=== PATIENT | female | born 1940 | race Caucasian/White ===

== ENCOUNTER → 2016-07-02 | Outpatient (CLI) | payer MEDICARE ==
[~2016-07-02] MED LIST: ASPIRIN 32325 MG/TAB PO; ASPIRIN E.C. 8181 MG PO; BUFFERED ASPIR325 M1 PO; COZAAR100 MG PO; CREON 60000 U-11 ECC PO; DESYREL 50MG50 MG PO; FISH OIL1 IU PO; FOLIC ACID PO; FOLIC ACID800 MCG PO; GLUCOPHAGE500 MG/TAB PO; LIPITOR20 MG PO; LISINOPRIL PO; MASON NATURAL1000 MG PO; MULTIPLE VITAMI1 TAB PO; NORCO 325 MG-51 TAB PO; NORVASC 5MG5 MG/TAB PO; OMEGA 31000 MG PO; PEPCID 20MG TAB20 MG PO; PREVACID 30MG30 M1 PO; PREVACID 30MG30 MG PO; THIAMINE HCL100 MG PO; TOPROL XL 25MG25 MG PO; TOPROL XL 50MG50 MG PO; TOPROL XL50 MG PO; VITAMIN D 1001000 IU PO; ZOFRAN ODT4 MG PO
== END ==
LOC: SUN.DIA 08:14
DX: E11.65 Type 2 diabetes mellitus with hyperglycemia (principal); Z79.84 Long term (current) use of oral hypoglycemic drugs; Z71.3 Dietary counseling and surveillance; Z68.29 Body mass index [BMI] 29.0-29.9, adult; I10 Essential (primary) hypertension; F17.210 Nicotine dependence, cigarettes, uncomplicated
CPT/HCPCS: G0108

== ENCOUNTER → 2016-07-14 | Outpatient (CLI) | payer MEDICARE | LOC: SUN.DIA 11:19 | DX: E11.65 Type 2 diabetes mellitus with hyperglycemia (principal); Z79.4 Long term (current) use of insulin; Z68.28 Body mass index [BMI] 28.0-28.9, adult; Z71.3 Dietary counseling and surveillance; I10 Essential (primary) hypertension | CPT/HCPCS: G0108 ==

== ENCOUNTER → 2016-09-15 | Outpatient (CLI) | payer MEDICARE | LOC: SUN.DIA 12:53 | DX: E11.65 Type 2 diabetes mellitus with hyperglycemia (principal); Z68.28 Body mass index [BMI] 28.0-28.9, adult; Z71.3 Dietary counseling and surveillance; I10 Essential (primary) hypertension; F17.210 Nicotine dependence, cigarettes, uncomplicated ==

== ENCOUNTER → 2016-10-06 | Outpatient (CLI) | payer MEDICARE | LOC: SUN.DIA 11:47 | DX: E11.65 Type 2 diabetes mellitus with hyperglycemia (principal); Z68.28 Body mass index [BMI] 28.0-28.9, adult; Z71.3 Dietary counseling and surveillance; I10 Essential (primary) hypertension ==

== ENCOUNTER → 2018-04-21 | Outpatient (CLI) | payer MEDICARE | LOC: COL.RAD 04-20 16:05 | DX: R68.81 Early satiety (principal) | CPT/HCPCS: A9541 ==

== ENCOUNTER 2018-08-30 11:05 | Inpatient (IN) | payer MEDICARE ==
[~2018-08-30] VITALS: Ht 162.6 cm; Wt 61.0 kg
[2018-08-30 12:19] LABS: BASO % 0.2 % (0.0-2.0); EOS # 0.1 (0.0-0.7); EOS % 0.9 % (0-4.0); GRAN # 11.8 (1.4-6.5); GRAN % 84.3 % (42.2-75.2); LYMPH # 0.9 (1.2-3.4); LYMPH % 6.7 % (20.0-51.0); MEAN CELL VOLUME 83 fl (80.0-100.0); MEAN CORPUSCULAR HEMOGLOBIN 29 pg (27.0-31.0); MEAN CORPUSCULAR HGB CONC 35 g/dl (33.0-37.0); MEAN PLATELET VOLUME 12.1 fl (7.4-10.4); MONO % 6.8 % (1.7-9.3); PLATELET COUNT 356 K/mm3 (130-400); RED BLOOD COUNT 3.46 M/mm3 (4.10-5.30); REDCELL DISTRIBUTION WIDTH-CV 16.9 % (11.5-14.5)
[2018-08-30 12:20] LABS: HEMATOCRIT 28.6 % (37.0-47.0)
[2018-08-30 12:28] LABS: ALANINE AMINOTRANSFERASE 320 U/L (9-52); ALBUMIN 3.3 gm/dL (3.5-5.0); ANION GAP 14 mmol/L (7-16); AST,SGOT 631 U/L (15-37); BILIRUBIN,TOTAL 21.6 mg/dL (0.0-1.0); BLOOD UREA NITROGEN 17 mg/dL (7-17); CALCIUM 7.5 mg/dL (8.4-10.2); CARBON DIOXIDE 18 mmol/L (22-30); CHLORIDE 99 mmol/L (98-107); CREATININE, serum 0.48 (0.52-1.25); GLUCOSE 83 mg/dL (74-106); LIPASE 137 U/L (23-300); POTASSIUM 2.5 mmol/L (3.4-5.0); SODIUM 131 mmol/L (137-145); TOTAL PROTEIN 7.9 gm/dL (6.4-8.2)
[2018-08-30 12:29] LABS: ACETAMINOPHEN < 10 ug/mL (10-30); ALCOHOL(ethanol),MEDICAL < 10 mg/dL; SALICYLATE < 1.0 mg/dL
[2018-08-30 12:33] LABS: ALKALINE PHOSPHATASE 2331 U/L (50-136)
[2018-08-30] MEDS ORDERED: NEXIUM 20MG20 MG (14:14)
[2018-08-30] MEDS ORDERED: GLUCOTROL10 MG (14:14)
--- NOTE | 2018-08-30 16:15 | NUR ---
Arrived to the room at this time. Dr. Leyva here for assessment.
[2018-08-30 17:24] VITALS: BP 117/73; PULSE 82; TEMP 98.4
[2018-08-30 19:07] VITALS: BP 124/59; PULSE 85; TEMP 97.8
--- NOTE | 2018-08-30 19:23 | NUR ---
No change throughout the afternoon. Education provided to call for assistance as needed. Report given to NIKA Soto to resume care.
--- NOTE | 2018-08-30 19:46 | NUR ---
Patient resting in bed, helped to restroom and returned to bed. Assessment completed- lungs clear, abdominal sounds active, pulses +3, cap refill <3 seconds, denies pain, jaundiced skin and eyes. Discussed NPO status at midnight. ENcouraging pt to drink juice with K+ replacment.
[2018-08-31] VITALS (10 sets, daily range): BP systolic 98–120; BP diastolic 40–60; PULSE 58–94; TEMP 97.5–99
[2018-08-31 03:49] LABS: BASO % 0.3 % (0.0-2.0); EOS # 0.2 (0.0-0.7); EOS % 1.5 % (0-4.0); GRAN # 8.8 (1.4-6.5); GRAN % 77.9 % (42.2-75.2); HEMATOCRIT 27.8 % (37.0-47.0); HEMOGLOBIN 9.6 g/dl (12.5-16.0); LYMPH # 1.2 (1.2-3.4); LYMPH % 10.8 % (20.0-51.0); MEAN CELL VOLUME 83 fl (80.0-100.0); MEAN CORPUSCULAR HEMOGLOBIN 29 pg (27.0-31.0); MEAN CORPUSCULAR HGB CONC 35 g/dl (33.0-37.0); MONO # 0.9 (0.1-0.6); MONO % 8.3 % (1.7-9.3); PLATELET COUNT 282 K/mm3 (130-400); RED BLOOD COUNT 3.36 M/mm3 (4.10-5.30); REDCELL DISTRIBUTION WIDTH-CV 16.9 % (11.5-14.5)
[2018-08-31 04:01] LABS: BILIRUBIN,TOTAL 19.2 mg/dL (0.0-1.0); CALCIUM 7.1 mg/dL (8.4-10.2); CREATININE, serum 0.42 (0.52-1.25); POTASSIUM 4.2 mmol/L (3.4-5.0)
--- NOTE | 2018-08-31 05:04 | NUR ---
Pt slept on/off last night. VSS, afebrile, no reports of pain. Up several times to use restroom, SBA. NPO for ERCP this morning.
--- NOTE | 2018-08-31 07:12 | NUR ---
Report given to NIKA Suh.
--- NOTE | 2018-08-31 08:17 | NUR ---
Pt alert and oriented and NPO for ERCP procedure today. Pt consent obtained. Pt IV patent no redness or infiltration. Pt denies pain or SOB. Pt remains jaundice. Pt has call light in reach.
--- NOTE | 2018-08-31 12:37 | NUR ---
Pt taken down by Lev for ERCP procedure. Pt transferred over to NS for procedure per orders.
--- NOTE | 2018-08-31 14:34 | NUR ---
DMITRY and SW student met with the patient and patient's , Kodak, to discuss discharge plan. The patient lives in [place] with her . She reports independence with ADLs and does not use any DME. The patient's PCP is Dr. Lacey Moise and she receives her medications at [facility]. She reporst no difficulties obtaining her meds. The patient does not have advanced directives in EMR, but she states that she does have them completed and that they are at home. She states her is her DPOA-HC. The patient and patient's informed DMITRY that Dr. Yi gave the patient the option of transferring to [facility]. The patient and patient's report that they made the decision that they would like to go to [facility]. DMITRY informed the patient's nurse. No additional needs at this time.
[2018-08-31] MEDS ORDERED: NICODERM C21 MG/PATC TD (16:31)
[2018-08-31] MEDS ORDERED: NOVLOG SQ (16:34)
[2018-08-31] MEDS ORDERED: ENULOSE10 GM/15 M PO (16:34)
--- NOTE | 2018-08-31 18:00 | NUR ---
Pt alert and oriented. Pt accepted to [facility] and transfer via [facility]. Pt given 40ml of 50ml of Mg per orders. Pt transferred with all belongings and IV in place and free of complications. Transfer paperwork signed and sent with EMS.
--- NOTE | 2018-08-31 19:35 | NUR ---
Pt report given to Erin at [facility] and advised pt on her way as requeste.
== END 2018-08-31 18:50 | disposition short-term general hospital (02) | DRG 374 ==
LOC: COL.ER 11:05 → MEDICAL 13:32
PROVIDERS: Emergency Medicine; Internal Medicine Gastroenterology; ADMIT Family Medicine
PROC: 0FJB8ZZ Inspection of Hepatobiliary Duct, Via Natural or Artificial Opening Endoscopic (ICD-10-PCS; principal; 2018-08-31 12:15)
DX: C17.0 Malignant neoplasm of duodenum (principal); K83.1 Obstruction of bile duct; E87.1 Hypo-osmolality and hyponatremia; K86.0 Alcohol-induced chronic pancreatitis; K86.9 Disease of pancreas, unspecified; E87.6 Hypokalemia; I10 Essential (primary) hypertension; I25.10 Atherosclerotic heart disease of native coronary artery without angina pectoris; E11.9 Type 2 diabetes mellitus without complications; Z95.5 Presence of coronary angioplasty implant and graft; F17.210 Nicotine dependence, cigarettes, uncomplicated; D64.9 Anemia, unspecified; E83.42 Hypomagnesemia; E78.5 Hyperlipidemia, unspecified; J44.9 Chronic obstructive pulmonary disease, unspecified
CPT/HCPCS: 99223-AI; 99233-AI; 99239; C1769; J1650; J1815; J2704; J3475; J3480; J7030; Q9967

== ENCOUNTER 2018-09-13 09:26 | Emergency (ER) | payer MEDICARE ==
[~2018-09-13] VITALS: Ht 162.6 cm; Wt 58.6 kg
[~2018-09-13 09:26] MED LIST changes: +ENULOSE10 GM/15 M PO; +GLUCOTROL10 MG; +NEXIUM 20MG20 MG; +NICODERM C21 MG/PATC TD; +NOVLOG SQ
[2018-09-13 11:13] LABS: BASO # 0.1 (0.0-0.2); BASO % 0.2 % (0.0-2.0); EOS % 0.1 % (0-4.0); GRAN # 18.6 (1.4-6.5); GRAN % 88.3 % (42.2-75.2); LYMPH # 1.1 (1.2-3.4); MEAN CELL VOLUME 86 fl (80.0-100.0); MEAN CORPUSCULAR HGB CONC 34 g/dl (33.0-37.0); MEAN PLATELET VOLUME 10.3 fl (7.4-10.4); MONO # 1.2 (0.1-0.6); MONO % 5.6 % (1.7-9.3); PLATELET COUNT 652 K/mm3 (130-400); RED BLOOD COUNT 3.02 M/mm3 (4.10-5.30)
[2018-09-13 11:18] LABS: HEMOGLOBIN 8.9 g/dl (12.5-16.0); MEAN CORPUSCULAR HEMOGLOBIN 29 pg (27.0-31.0)
[2018-09-13 11:21] LABS: ALBUMIN 3.3 gm/dL (3.5-5.0); BILIRUBIN,TOTAL 5.5 mg/dL (0.0-1.0); CALCIUM 7.7 mg/dL (8.4-10.2); CREATININE, serum 4.75 (0.52-1.25); POTASSIUM 3.3 mmol/L (3.4-5.0); TOTAL PROTEIN 7.4 gm/dL (6.4-8.2)
[2018-09-13 11:31] LABS: TROPONIN-I 0.022 ng/mL (0.000-0.035)
[2018-09-13 11:35] LABS: INR 1.4 (0.8-3.0); PROTHROMBIN TIME 15.5 SECONDS (9.7-12.8)
[2018-09-13 11:52] LABS: COLLECTION METHOD CLEAN CATCH
[2018-09-13 12:05] LABS: BUDDING YEAST Present /hpf; MUCOUS Present /lpf; PH 5 (5-8); SQUAMOUS EPITHELIAL 0-2 /hpf; URINE APPEARANCE Cloudy; URINE BACTERIA Rare /hpf; URINE BILIRUBIN Positive (NEGATIVE); URINE BLOOD 1+ (NEGATIVE); URINE COLOR Amber; URINE GLUCOSE Negative (NEGATIVE); URINE KETONE Trace (NEGATIVE); URINE LEUKOCYTE ESTERASE Negative (NEGATIVE); URINE NITRATE Negative (NEGATIVE); URINE PROTEIN(semi-quant) 2+ (NEGATIVE)
[2018-09-13] MEDS ORDERED: ASPIRIN 81M81 MG/TA2 PO (12:41)
[2018-09-13] MEDS ORDERED: ONGLYZA5 MG PO (12:42)
[2018-09-13 13:33] VITALS: BP 101/45; PULSE 68; TEMP 96.8
== END 2018-09-13 13:41 | disposition short-term general hospital (02) ==
LOC: COL.ER 09:26
PROVIDERS: Emergency Medicine
DX: R65.11 Systemic inflammatory response syndrome (SIRS) of non-infectious origin with acute organ dysfunction (principal); N17.9 Acute kidney failure, unspecified; I25.10 Atherosclerotic heart disease of native coronary artery without angina pectoris; F17.210 Nicotine dependence, cigarettes, uncomplicated; Z79.82 Long term (current) use of aspirin; Z79.84 Long term (current) use of oral hypoglycemic drugs
CPT/HCPCS: C1751; J0692; J1720; J3370; J7030; J7050; J7060

== ENCOUNTER → 2018-09-30 | Outpatient (CLI) | payer MEDICARE ==
[~2018-09-30] MED LIST changes: +ASPIRIN 81M81 MG/TA2 PO; +ONGLYZA5 MG PO
== END ==
LOC: COL.RAD 09:20
DX: Z48.03 Encounter for change or removal of drains (principal); C25.9 Malignant neoplasm of pancreas, unspecified; Z96.89 Presence of other specified functional implants
CPT/HCPCS: Q9967

== ENCOUNTER → 2018-12-02 | Outpatient (CLI) | payer MEDICARE | LOC: ZCOL.LAB 16:35 | DX: Z01.89 Encounter for other specified special examinations (principal) ==

== ENCOUNTER → 2019-02-03 | Outpatient (CLI) | payer MEDICARE | LOC: COL.VAS 13:09 | DX: C25.0 Malignant neoplasm of head of pancreas (principal); M79.89 Other specified soft tissue disorders; M77.32 Calcaneal spur, left foot ==

== ENCOUNTER → 2019-05-25 | Outpatient (CLI) | payer MEDICARE ==
[~2019-05-25] VITALS: Ht 162.6 cm; Wt 60.4 kg
[2019-05-25 10:41] VITALS: BP 161/88; PULSE 101
[2019-05-25 11:45] VITALS: BP 164/95; PULSE 110
== END ==
LOC: COL.RAD 09:45
DX: C25.0 Malignant neoplasm of head of pancreas (principal); E11.9 Type 2 diabetes mellitus without complications

== ENCOUNTER → 2019-06-08 | Outpatient (CLI) | payer MEDICARE | LOC: ZCOL.LAB 14:19 | DX: L97.909 Non-pressure chronic ulcer of unspecified part of unspecified lower leg with unspecified severity (principal); I83.009 Varicose veins of unspecified lower extremity with ulcer of unspecified site ==

== ENCOUNTER → 2019-08-25 | Outpatient (CLI) | payer MEDICARE | LOC: ZCOL.LAB 13:26 | DX: I83.022 Varicose veins of left lower extremity with ulcer of calf (principal) ==

== ENCOUNTER → 2019-09-29 | Outpatient (CLI) | payer MEDICARE ==
[~2019-09-29] VITALS: Ht 162.6 cm; Wt 66.2 kg
[~2019-09-29] MED LIST changes: +cipro
[2019-09-29 10:03] VITALS: BP 116/75; PULSE 109
[2019-09-29 11:20] VITALS: BP 120/73; PULSE 79
== END ==
LOC: COL.RAD 09:36
DX: C25.0 Malignant neoplasm of head of pancreas (principal); R18.8 Other ascites

== ENCOUNTER 2019-10-11 15:20 | Inpatient (IN) | payer MEDICARE ==
[~2019-10-11] VITALS: Ht 162.6 cm; Wt 65.8 kg
[2019-10-11] VITALS (170 sets, daily range): BP systolic 125–137; BP diastolic 72–74; PULSE 89–90; TEMP 97.5–98.1; O2SAT 73–100
[~2019-10-11 15:20] MED LIST changes: -GLUCOTROL10 MG; +GLUCOTROL10 MG PO; -NEXIUM 20MG20 MG; +NEXIUM 20MG20 MG PO
[2019-10-11 15:55] LABS: ARTERIAL BLD GAS O2 SATURATION 97.1 % (92-100); ARTERIAL BLD GAS TCO2 CT 33.5; ARTERIAL BLOOD GAS BASE EXCESS 10.8 (-2-2); ARTERIAL BLOOD GAS HCO3 32.5 meq/L (22-26); ARTERIAL BLOOD GAS PCO2 32.3 mmHg (35-45); ARTERIAL BLOOD GAS PO2 85.5 mmHg (80-100)
[2019-10-11 15:56] LABS: ARTERIAL BLOOD GAS pH 7.62 (7.35-7.45)
[2019-10-11] MEDS ORDERED: ONGLYZA5 MG PO (16:14)
[2019-10-11] MEDS ORDERED: K-TAB20 PO (16:15)
[2019-10-11] MEDS ORDERED: AMOXICILLIN 8751 TAB PO (16:16)
[2019-10-11 17:24] LABS: BASO % 0.1 % (0.0-2.0); EOS % 0.1 % (0-4.0); GRAN # 10.3 (1.4-6.5); GRAN % 81.4 % (42.2-75.2); HEMOGLOBIN 10.1 g/dl (12.5-16.0); LYMPH # 0.9 (1.2-3.4); LYMPH % 7.1 % (20.0-51.0); MEAN CELL VOLUME 83 fl (80.0-100.0); MEAN CORPUSCULAR HEMOGLOBIN 27 pg (27.0-31.0); MEAN CORPUSCULAR HGB CONC 32 g/dl (33.0-37.0); MEAN PLATELET VOLUME 9.4 fl (7.4-10.4); MONO # 1.3 (0.1-0.6); MONO % 10.5 % (1.7-9.3); PLATELET COUNT 452 K/mm3 (130-400); RED BLOOD COUNT 3.76 M/mm3 (4.10-5.30); REDCELL DISTRIBUTION WIDTH-CV 15.7 % (11.5-14.5)
[2019-10-11 17:28] LABS: HEMATOCRIT 31.2 % (37.0-47.0)
[2019-10-11 17:29] LABS: INR 1.3 (0.8-3.0); PROTHROMBIN TIME 14.7 SECONDS (9.7-12.8)
[2019-10-11 17:41] LABS: ALANINE AMINOTRANSFERASE 20 U/L (4-34); ALBUMIN 2.6 gm/dL (3.5-5.0); ALKALINE PHOSPHATASE 151 U/L (50-136); ANION GAP 7 mmol/L (7-16); AST,SGOT 41 U/L (15-37); BILIRUBIN,TOTAL 0.8 mg/dL (0.0-1.0); BLOOD UREA NITROGEN 30 mg/dL (7-17); CALCIUM 7.3 mg/dL (8.4-10.2); CARBON DIOXIDE 37 mmol/L (22-30); CHLORIDE 91 mmol/L (98-107); CREATININE, serum 0.74 (0.52-1.25); GLUCOSE 188 mg/dL (74-106); LIPASE 43 U/L (23-300); SODIUM 134 mmol/L (137-145); TOTAL PROTEIN 6.3 gm/dL (6.4-8.2)
[2019-10-11 17:54] LABS: TROPONIN-I < 0.012 ng/mL (0.000-0.035)
--- NOTE | 2019-10-11 19:55 | NUR ---
Received report from NIKA Johns.
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
[2019-10-12] VITALS (169 sets, daily range): BP systolic 112–134; BP diastolic 62–76; PULSE 54–117; TEMP 97.2–98.4; O2SAT 56–100
--- NOTE | 2019-10-12 00:02 | NUR ---
Contacted Dr. Ulrich in order to clarify orders for administration of second bag of Magnesium Sulfate. At this time, also asked if he would like a potassium redraw, since the patient has already received 40meq since last lab draw. Received instructions to dose potassium according to first lab draw of 3.0, but to subtract 40meq from total dosage. An additional 40meq of potassium will be given according to protocol to total 80meq.
[2019-10-12] MEDS ORDERED: CREON 60000 U-11 ECC PO (00:53)
[2019-10-12] MEDS ORDERED: LASIX 20MG TABL20 MG PO (00:58)
[2019-10-12 04:27] LABS: BASO % 0.1 % (0.0-2.0); GRAN % 82.4 % (42.2-75.2); LYMPH # 1.3 (1.2-3.4); LYMPH % 7.9 % (20.0-51.0); MEAN CELL VOLUME 82 fl (80.0-100.0); MEAN CORPUSCULAR HGB CONC 32 g/dl (33.0-37.0); MEAN PLATELET VOLUME 9.4 fl (7.4-10.4); MONO # 1.4 (0.1-0.6); MONO % 8.7 % (1.7-9.3); PLATELET COUNT 478 K/mm3 (130-400); RED BLOOD COUNT 3.29 M/mm3 (4.10-5.30); REDCELL DISTRIBUTION WIDTH-CV 15.7 % (11.5-14.5)
[2019-10-12 04:29] LABS: HEMATOCRIT 27.1 % (37.0-47.0); HEMOGLOBIN 8.7 g/dl (12.5-16.0); MEAN CORPUSCULAR HEMOGLOBIN 26 pg (27.0-31.0)
[2019-10-12 04:38] LABS: ALBUMIN 2.4 gm/dL (3.5-5.0); BILIRUBIN,TOTAL 0.7 mg/dL (0.0-1.0); CALCIUM 7.1 mg/dL (8.4-10.2); CREATININE, serum 0.65 (0.52-1.25); POTASSIUM 4.1 mmol/L (3.4-5.0); TOTAL PROTEIN 5.9 gm/dL (6.4-8.2)
--- NOTE | 2019-10-12 05:02 | NUR ---
Patient to medical room 306 at this time. She is alert and oriented and has no complaints of pain. She does state she is feeling nauseous. Her legs are edematous and she has chronic wounds that are dressed with wraps. Her heart sounds are normal/regular and lungs have audible wheezes. Her abdomen is firm and distended. She currently has potassium running into a right forearm IV. She states she is tired and wants to rest. Will continue to monitor.
--- NOTE | 2019-10-12 07:37 | NUR ---
Patient has vomited approximately 800 ml of black, liquid vomit. 4mg Zofran administered. This information is passed onto day shift nurse. Will monitor.
--- NOTE | 2019-10-12 09:34 | NUR ---
Pt awaker and alert this morning, no C/O pain at this time. Shift assessments complete, left Pt call light in reach, bed in lowest position.
--- NOTE | 2019-10-12 11:19 | NUR ---
The patient is on contact precautions and pending results for COVID. SW contacted the patient's , Kodak (ph#[phone]), to discuss discharge plan. The patient lives in [place] with her . Kodak reports that the patient is more or less independent with ADLs and has a cane. Her PCP is Dr. [place] Vo and she receives her medications at [facility]. Kodak reports no difficulties obtaining her meds. The patient does not have advance directives in EMR, but Kodak reports that the patient does have them completed and that they are at home. Kodak states that he is the patient's DPOA-HC and that he can bring a copy of the documents to the hospital, once the patient's COVID results come back negative. Kodak reports that he has no problems or concerns with the patient coming back home with him upon discharge. A palliative care consult has been ordered. SW to continue to follow.
--- NOTE | 2019-10-12 15:22 | NUR ---
Will await palliative care consult until tomorrow after COVD 19 test is back per Dr Chan. Room is very noisy and pt had difficulty with hearing him today so will be better to wait until pt can move to a quieter room.
--- NOTE | 2019-10-12 19:34 | NUR ---
Pt resting in the room today, had C/O pain in her lower back / flank area, medications given for relief. VS have remained stable.
--- NOTE | 2019-10-12 19:39 | NUR ---
Pt resting in the room, no C/O pain today, VS have remained stable, Pt not eating well.
--- NOTE | 2019-10-12 20:00 | NUR ---
At time of assessment, patient is resting in bed. She wakes easily to voice but seems disoriented, stating she has already taken her evening medications (which are no where in the room). She is oriented to self and that she is in [place], [place] but cannot think of which building. She does not complain of pain or nausea at this time and did not throw up anymore throughout day shift after vomiting 800ml at 0700 this morning. Her lower legs are stilled wrapped with dressings to cover her ulcers and the dressings are CDI. She still has bilateral lower extremity edema. Lungs are clear, heart sounds are normal/regular with a tachycardic rate.
[2019-10-13] VITALS (49 sets, daily range): BP systolic 63–130; BP diastolic 28–86; PULSE 73–116; TEMP 96.3–98.1; O2SAT 19–100
--- NOTE | 2019-10-13 02:30 | NUR ---
Patient hypotensive at 83/51 at this time. 500ml fluid bolus obtained from NIKIA Bills. at 0400, BP is 81/41. 25 G of IV albumin order obtained from Dr. Chavez and is being mixed my Anesthesiology Medical Doctor in pharmacy. Will administer and monitor BP.
--- NOTE | 2019-10-13 09:30 | NUR ---
Received patient to ICU 5 via bed from medical floor. Yossi RN at bedside for transfer. Patient is awake and alert, confused with conversation at time. Monitors applied, assessment complete.
[2019-10-13 09:34] LABS: BILIRUBIN,TOTAL 0.5 mg/dL (0.0-1.0); CALCIUM 6.5 mg/dL (8.4-10.2); CREATININE, serum 1.34 (0.52-1.25); POTASSIUM 4.4 mmol/L (3.4-5.0); TOTAL PROTEIN 4.2 gm/dL (6.4-8.2)
[2019-10-13 09:35] LABS: INR 2.9 (0.8-3.0); PROTHROMBIN TIME 32.6 SECONDS (9.7-12.8)
[2019-10-13 09:40] LABS: BASO % 0.1 % (0.0-2.0); GRAN # 14.2 (1.4-6.5); GRAN % 87.9 % (42.2-75.2); LYMPH # 0.5 (1.2-3.4); LYMPH % 3.1 % (20.0-51.0); MEAN CORPUSCULAR HGB CONC 31 g/dl (33.0-37.0); MEAN PLATELET VOLUME 10.8 fl (7.4-10.4); MONO # 0.9 (0.1-0.6); MONO % 5.7 % (1.7-9.3); RED BLOOD COUNT 1.35 M/mm3 (4.10-5.30); REDCELL DISTRIBUTION WIDTH-CV 16.7 % (11.5-14.5)
[2019-10-13 09:50] LABS: HEMATOCRIT 11.9 % (37.0-47.0); HEMOGLOBIN 3.7 g/dl (12.5-16.0); MEAN CELL VOLUME 88 fl (80.0-100.0); MEAN CORPUSCULAR HEMOGLOBIN 27 pg (27.0-31.0); PLATELET COUNT 316 K/mm3 (130-400)
--- NOTE | 2019-10-13 11:09 | NUR ---
Met with pt and her at bedside in ICU. Dr Jay into visit with family and explain her condition and need to move quickly to try to increase blood count, maintain adequate circulation to vital organs and to determine where the blood loss is occuring. Pt and did agree to PICC line and units of blood. Pt aware of staying in ICU for today but asked about doing blood on outpt basis. Reinforced that all of this must happen quickly if we are to be able to improve her sitaution. seemed to grasp the seriousness of the situation but is still wanting everything done to try to save her. Pt was given small amts of ice chips with Dr Jay's approval and warm blankets were applied. did provided DPOA-HC and living will and copies were placed on the chart. They declined need for clergy and reports that he has spoken with both sons. Currently continuing aggressive care.
[2019-10-13 12:04] LABS: RETIC # 0.07 M/mm3 (0.02-0.16); RETIC % 5.5 % (0.5-3.52)
[2019-10-13 12:15] LABS: IRON,SERUM 77 ug/dL (35-150)
[2019-10-13 12:27] LABS: TOTAL IRON BINDING CAPACITY 121 ug/dL (265-497)
--- NOTE | 2019-10-13 13:22 | NUR ---
Pt has blood infusing now, has been seen by Dr Mix and Dr Jay in follow up.Pt and are still advising providers that they want to blood, scans, and procedures as discussed. I did encourage Mr Binh to call his sons and let them know the seriousness of this situation, which he states he will do. Support has been provided throught the morning. Pt is talking about going home or changing rooms and at this time seems confused.
--- NOTE | 2019-10-13 13:59 | NUR ---
Due to the patient's condition she was transferred to the ICU. The patient's Kodak provided DPOA-HC and a copy is in the chart. Kodak is appointed. Will continue to follow.
[2019-10-13 14:01] LABS: ARTERIAL BLD GAS O2 SATURATION 97.3 % (92-100); ARTERIAL BLD GAS TCO2 CT 24.6; ARTERIAL BLOOD GAS BASE EXCESS -0.3 (-2-2); ARTERIAL BLOOD GAS HCO3 23.5 meq/L (22-26); ARTERIAL BLOOD GAS PCO2 33.6 mmHg (35-45); ARTERIAL BLOOD GAS PO2 102.1 mmHg (80-100); ARTERIAL BLOOD GAS pH 7.46 (7.35-7.45)
[2019-10-13 16:20] LABS: HEMATOCRIT 36.7 % (37.0-47.0); HEMOGLOBIN 11.8 g/dl (12.5-16.0)
[2019-10-13 16:28] LABS: PROTHROMBIN TIME 34.2 SECONDS (9.7-12.8)
[2019-10-13 17:36] LABS: CALCIUM 6.2 mg/dL (8.4-10.2); CREATININE, serum 1.07 (0.52-1.25); POTASSIUM 3.7 mmol/L (3.4-5.0)
--- NOTE | 2019-10-13 19:10 | NUR ---
RECEIVED REPORT FROM NIKA MENDEZ. PT SITTING UP IN BED ON 2L VIA NC. VSS. PT ENGAGES IN A CONVERSATION SWITH NURSING STAFF, SLWO SPEECH NOTED BUT PREVIOUS SHIFT STATES IS HER NORM. FC PATENT AND DRAINING TO GRAVITY. CALL LIGHT WITHIN REACH.
--- NOTE | 2019-10-13 19:15 | NUR ---
Report given to Chata MAHER
[2019-10-13 20:48] LABS: HEMATOCRIT 26.2 % (37.0-47.0); HEMOGLOBIN 8.9 g/dl (12.5-16.0)
[2019-10-13 22:48] LABS: INR 1.8 (0.8-3.0); PROTHROMBIN TIME 20.3 SECONDS (9.7-12.8)
[2019-10-14] VITALS: BP 108/65; PULSE 96; TEMP 97.1
--- NOTE | 2019-10-14 00:25 | NUR ---
GIORGI PHYSICIAN NOTIFED OF PT/INR RESULT, NO NEW ORDERS.
[2019-10-14 04:00] VITALS: BP 104/70; PULSE 88; TEMP 97.4
[2019-10-14 04:32] LABS: BILIRUBIN,TOTAL 0.9 mg/dL (0.0-1.0); CALCIUM 6.2 mg/dL (8.4-10.2); CREATININE, serum 0.87 (0.52-1.25); POTASSIUM 3.5 mmol/L (3.4-5.0); TOTAL PROTEIN 4.4 gm/dL (6.4-8.2)
[2019-10-14 05:04] LABS: INR 1.8 (0.8-3.0); PROTHROMBIN TIME 20.7 SECONDS (9.7-12.8)
[2019-10-14 05:10] LABS: BASO % 0.1 % (0.0-2.0); GRAN # 11.9 (1.4-6.5); GRAN % 86.4 % (42.2-75.2); LYMPH # 0.6 (1.2-3.4); LYMPH % 4.3 % (20.0-51.0); MEAN CELL VOLUME 85 fl (80.0-100.0); MEAN CORPUSCULAR HGB CONC 34 g/dl (33.0-37.0); MEAN PLATELET VOLUME 10.3 fl (7.4-10.4); MONO # 1.1 (0.1-0.6); MONO % 7.7 % (1.7-9.3); RED BLOOD COUNT 2.58 M/mm3 (4.10-5.30); REDCELL DISTRIBUTION WIDTH-CV 16.8 % (11.5-14.5)
[2019-10-14 05:11] LABS: HEMATOCRIT 21.9 % (37.0-47.0); HEMOGLOBIN 7.4 g/dl (12.5-16.0); MEAN CORPUSCULAR HEMOGLOBIN 29 pg (27.0-31.0); PLATELET COUNT 150 K/mm3 (130-400)
[2019-10-14 05:59] LABS: ARTERIAL BLD GAS O2 SATURATION 95.7 % (92-100); ARTERIAL BLD GAS TCO2 CT 26.3; ARTERIAL BLOOD GAS BASE EXCESS 2.2 (-2-2); ARTERIAL BLOOD GAS HCO3 25.3 meq/L (22-26); ARTERIAL BLOOD GAS PCO2 33.5 mmHg (35-45); ARTERIAL BLOOD GAS PO2 87.3 mmHg (80-100)
--- NOTE | 2019-10-14 06:05 | NUR ---
PT STARTS COUGHING ROUGHLY AND ENDS UP THROWING UP ABOUT 50ML OF COFFEE GROUND CONSISTENCY WITH WATER FLUID. INFORMED PT THAT IT WOULD BE BEST TO STICK TO ONLY ICE CHIPS AND ALLOW HER STOMACH TO CALM DOWN, PT IS RELUCTANT BUT ENDS UP VERBALIZING UNDERSTANDING. WILL CONTINUE TO MONITOR CLOSELY.
[2019-10-14 08:00] VITALS: BP 111/80; PULSE 101; TEMP 97.8
[2019-10-14 12:00] VITALS: BP 112/79; PULSE 101; TEMP 97.9
[2019-10-14 13:38] LABS: HEMATOCRIT 21.1 % (37.0-47.0)
[2019-10-14 16:00] VITALS: BP 110/77; PULSE 99; TEMP 98.2
--- NOTE | 2019-10-14 19:00 | NUR ---
RECEIVED REPORT FROM NIKA MACIAS. PT SITTING UP IN BED ON 2L VIA NC. VSS. FC PATENT AND DRAINING TO GRAVITY. CALL LIGHT WITHIN REACH.
[2019-10-14 20:00] VITALS: BP 100/68; PULSE 106; TEMP 97.8
[2019-10-14 21:20] LABS: HEMATOCRIT 22.5 % (37.0-47.0); HEMOGLOBIN 7.3 g/dl (12.5-16.0)
--- NOTE | 2019-10-14 21:32 | NUR ---
CHANDLER PAUL CALLED ABOUT PT'S C/O FEELING SHOB AFTER RT AND PREFORMS LAMINATOR NOTED PT DOES APPEAR TO BE GASPING SOME WITH INSPRIATION, POX 96-98% ON 2L VIA NC. PHSYCIAN TO BEDSIDE FOR ASSESSMENT. NOTIFIED OF HR HAVING FREQUENT ECTOPY AT TIMES AND IS HITTING 120s BUT IS NOT SUSTAINED. PHYSICIAN STATES TO NOTIFY IF HR DOES SUSTAIN ABOVE 120. RT TO BEDSIDE FOR BREATHING TX. XRAY NOTIFIED OF CXR ORDER. WILL CONTINUE TO MONITOR CLOSELY.
--- NOTE | 2019-10-14 23:30 | NUR ---
CHANDLER PAUL NOTIFIED OF POSITIVE BLOOD CULTURES.
[2019-10-15] VITALS (16 sets, daily range): BP systolic 79–126; BP diastolic 48–78; PULSE 92–107; TEMP 97.5–98
--- NOTE | 2019-10-15 00:28 | NUR ---
NOTIFIED CHANDLER PAUL OF PT'S SBP DROPPING TO 70s. PHYSICIAN TO BEDSIDE FOR ASSESSMENT, NEW ORDERS RECEIVED. SEE GTT TITRATIONS FLOWSHEET. PT AROUSES AND DOES ANSWER OREINTATION QUESTIONS APPROPRIATELY.
[2019-10-15 00:45] LABS: BASO % 0.1 % (0.0-2.0); GRAN # 13.5 (1.4-6.5); GRAN % 88.8 % (42.2-75.2); LYMPH # 0.5 (1.2-3.4); MEAN CELL VOLUME 88 fl (80.0-100.0); MEAN CORPUSCULAR HGB CONC 33 g/dl (33.0-37.0); MEAN PLATELET VOLUME 10.3 fl (7.4-10.4); MONO # 0.9 (0.1-0.6); MONO % 5.9 % (1.7-9.3); PLATELET COUNT 177 K/mm3 (130-400); RED BLOOD COUNT 2.32 M/mm3 (4.10-5.30); REDCELL DISTRIBUTION WIDTH-CV 17.7 % (11.5-14.5)
[2019-10-15 00:47] LABS: HEMATOCRIT 20.3 % (37.0-47.0); HEMOGLOBIN 6.6 g/dl (12.5-16.0); MEAN CORPUSCULAR HEMOGLOBIN 28 pg (27.0-31.0)
[2019-10-15 00:50] LABS: ALBUMIN 1.8 gm/dL (3.5-5.0); BILIRUBIN,TOTAL 1.1 mg/dL (0.0-1.0); CALCIUM 6.6 mg/dL (8.4-10.2); CREATININE, serum 0.78 (0.52-1.25); MAGNESIUM 1.3 mg/dL (1.6-2.3); TOTAL PROTEIN 4.2 gm/dL (6.4-8.2)
[2019-10-15 01:05] LABS: PROTHROMBIN TIME 22.7 SECONDS (9.7-12.8)
--- NOTE | 2019-10-15 01:08 | NUR ---
CHANDLER PAUL NOTIFIED OF CDIFF TOXIN IN GI PANEL, MAG LEVEL, HGB 6.6. NEW ORDERS RECEIVED, SEE MAR.
[2019-10-15 02:07] LABS: CLOSTRIDIUM DIFF A/B POS; CLOSTRIDIUM DIFF A/B INTERP Toxigenic C.diff POS
--- NOTE | 2019-10-15 02:15 | NUR ---
CHANDLER PAUL NOTIFIED OF PT CDIFFE PSITIVE, NEW ORDERS RECEIVED.
[2019-10-15 05:37] LABS: ARTERIAL BLD GAS O2 SATURATION 96.2 % (92-100); ARTERIAL BLD GAS TCO2 CT 23.8; ARTERIAL BLOOD GAS HCO3 22.9 meq/L (22-26); ARTERIAL BLOOD GAS PCO2 31.1 mmHg (35-45); ARTERIAL BLOOD GAS PO2 84.6 mmHg (80-100); ARTERIAL BLOOD GAS pH 7.48 (7.35-7.45)
[2019-10-15 05:54] LABS: MEAN CELL VOLUME 88 fl (80.0-100.0); MEAN CORPUSCULAR HGB CONC 34 g/dl (33.0-37.0); MEAN PLATELET VOLUME 10.6 fl (7.4-10.4); PLATELET COUNT 151 K/mm3 (130-400); RED BLOOD COUNT 3.24 M/mm3 (4.10-5.30); REDCELL DISTRIBUTION WIDTH-CV 16.7 % (11.5-14.5)
[2019-10-15 05:56] LABS: HEMATOCRIT 28.6 % (37.0-47.0); HEMOGLOBIN 9.6 g/dl (12.5-16.0); MEAN CORPUSCULAR HEMOGLOBIN 30 pg (27.0-31.0)
[2019-10-15 06:07] LABS: BILIRUBIN,TOTAL 1.1 mg/dL (0.0-1.0); CALCIUM 6.8 mg/dL (8.4-10.2); CREATININE, serum 0.78 (0.52-1.25); MAGNESIUM 1.8 mg/dL (1.6-2.3); TOTAL PROTEIN 4.6 gm/dL (6.4-8.2)
--- NOTE | 2019-10-15 07:25 | NUR ---
Report received from NIKA Medina.
--- NOTE | 2019-10-15 07:56 | NUR ---
Pt resting in bed, easily arousable. Pt refuses accuchecks and medications at this time. When discussed plan of care r/t dr hutchison and labs Pt states, "No more doctors".
[2019-10-15 08:15] LABS: BAND 9 % (0-10); LYMPHOCYTE 2 % (20.0-51.0); METAMYELOCYTE 2 % (0-0); NEUTROPHILS 84 % (42.0-75.2); NUCLEATED RED BLOOD CELL 2 (0-6); PLATELET ESTIMATE NORMAL (NORMAL); TOXIC GRANULATION PRESENT
[2019-10-15 08:16] LABS: ANISOCYTOSIS 1+
--- NOTE | 2019-10-15 08:56 | NUR ---
Dr Siddiqi called nurse for pt update. Updated on pt status. Pt had diarrhea last night and was positive for Cdiff. Pt also required 1 unit PRBC last night. Levophed gtt is now on hold after PRBC transfused.
--- NOTE | 2019-10-15 09:12 | NUR ---
Dr Briggs at bedside to see pt. Updated pt refuses medications at this time. Pt received 1 unit PRBC last night and hgb level improved. Levophed gtt now off after PRBC given. RT at bedside and pt now refusing breathing treatments. Dr Briggs attempted to call pt's , and voicemail left on phone.
--- NOTE | 2019-10-15 09:31 | NUR ---
Nurse called pt's . Pt's will come in with 2 sons for family conference with Dr Briggs at 1030 today. Pt resting in bed, easily arousable. Warm blanket offered. Pt states she doesn't want anything and to "get out".
--- NOTE | 2019-10-15 10:04 | NUR ---
Pt refusing bath and catheter care at this time. Pt doesn't want nurse in room. Pioneer and repositioning offered. Pt says, "get out of my room".
--- NOTE | 2019-10-15 11:05 | NUR ---
Pt's and two sons having family conference with Dr Briggs. Pt resting, easily arousable. Oriented only to self and place. Pt given sips of cranberry juice. Pt does not want to be repositioned at this time. Pt states she doesn't need anything at this time. Pt states the previous nurse was in her room often. Explained to pt hgb level was low and unit of PRBC was given last night which required more vital signs and monitoring. Pt nodded her head.
--- NOTE | 2019-10-15 13:03 | NUR ---
Dr Briggs had family conference with pt's and two sons. Dr Briggs discussed meeting with this nurse and Marcello Freedmansupervisor whipped topping at 1243. Family would like to make pt palliative care. FAmily wants to take pt home on hospice tomorrow. They would like to talk to a patient portal representative from hospice today. SW notified at 1253 and will call home care [facility]. Pt's and two sons are in room. Discussed contact isolation d/t pt being postive for CDiff. Family has isolation gown and gloves on. Coffee offered to family and no other requests at this time.
--- NOTE | 2019-10-15 13:32 | NUR ---
Received call from DMITRY that they contacted Amarilis from [facility]. A traveling sales representative will call pt's , Kodak, today. Family in room and updated.
--- NOTE | 2019-10-15 13:36 | NUR ---
Sw received a call from patients nurse.Patients family had discussed patients currently situation and patient will be moved for Pallative of care, and will be returning home for hospice services. Family choice is [facility]. DMITRY contacted agency and spoke with Amarilis [phone] and faxed referral information to [phone]. Nurse insisted that agency contact the family today, and so DMITRY relayed this information to Amarilis who indicated that either the agency social science manager her she will contact the family today. Per nurse patient will be moved out of ICU today.
--- NOTE | 2019-10-15 14:10 | NUR ---
Pt unable to swallow PO vancomycin. Pt's states she usually takes capsules without any difficulty. Pt tolerates sips of water. Pharmacy notified and request elixir form for pt.
--- NOTE | 2019-10-15 15:55 | NUR ---
Phone report given to Yas, Medical floor RN.
--- NOTE | 2019-10-15 16:30 | NUR ---
Pt transferred to room 358 via bed. Pt's and two sons in room. Pt's updated on vanco capsule changed to liquid and stored in med room fridge. Pt's nurse, Yas, updated on pt's arrival.
--- NOTE | 2019-10-15 18:10 | NUR ---
PATIENT HAS BEEN REPOSITIONED IN BED. SHE DOESN'T WANT ANYTHING TO EAT OR DRINK ONLY A COUPLE SIPS OF ICE COLD CRANBERRY JUICE.
--- NOTE | 2019-10-15 20:04 | NUR ---
Resting in bed. Assessment complete. Wheezing with inspiration and expiration. Heart sounds normal. Bowels active x4, ABD distended and firm. . Radial pulses present. Bilateral lower extremity wraps in place-CDI. Generalized edema +2. PICC to right upper infusing without complications. Patient denies pain at this time. Patient requesting duck and cream for dinner. Educated patient regarding clear liquid diet. Patient wishes to no longer follow diet. No duck and cream available to patient at this time. Patient states "you guys are wrong I have had duck and cream every night." Apologized to patient for inconvience-patient currently eating jello. Alert and orientated x4 at this time. Denies other needs. Will monitor.
--- NOTE | 2019-10-15 21:21 | NUR ---
Patient continues to request duck and cream. Offered patient other options. Refused at this time. requested schedule trazodone. Provided to patient. Will monitor.
--- NOTE | 2019-10-15 23:13 | NUR ---
Patient refused repositioning. Denies pain. Denies needs. Provided with warm blanket. Call light in reach.
--- NOTE | 2019-10-16 02:02 | NUR ---
Repositioned and provided with warm blanket. Denies other needs. Denies pain. Call light in reach.
[2019-10-16 03:09] VITALS: BP 112/63; PULSE 102; TEMP 98
--- NOTE | 2019-10-16 06:23 | NUR ---
Resting in bed. Refused most repositioning throughout night. Otherwise uneventful night. Denied pain. Denies needs this AM. Call light in reach.
--- NOTE | 2019-10-16 07:22 | NUR ---
Report given to NIKA Way
[2019-10-16 08:25] VITALS: BP 115/55; PULSE 91
[2019-10-16] MEDS ORDERED: FIRVANQ25 MG/1 ML PO (09:19)
[2019-10-16] MEDS ORDERED: ZOFRAN 4MG T4 MG/TAB PO (09:21)
--- NOTE | 2019-10-16 09:21 | NUR ---
I spoke with Leti at [facility] this morning about working to get Mrs. Purcell home today. They will need a hospital bed and oxygen set up in the home. Their weekend oncology social worker did talk with the family over the weekend and all are in agreement that she needs to get home as soon as possible. Family will provide care until caregiver(s) can be hired but they want her home as soon as possible. I did discuss with Leti the fact that pt has C-diff and that family may need extra support/supplies at home to deal with this. Dr Briggs has been advised that she can be admitted at 1330 and they would like to have pt discharged here at [id number] to go home. Leti has spoken with family already and they are aware of plan.
[2019-10-16] MEDS ORDERED: DULCOLAX S10 MG/SUPP RC (09:22)
[2019-10-16] MEDS ORDERED: ROXANOL 20MG20 MG/ML SL (09:22)
[2019-10-16] MEDS ORDERED: ATIVAN 1MG T1 MG/TAB PO (09:22)
[2019-10-16] MEDS ORDERED: ARTIFICIAL TEAR15 M7 OP (09:22)
[2019-10-16] MEDS ORDERED: TRANSDERM-0.5 MG/21 TD (10:45)
--- NOTE | 2019-10-16 11:22 | NUR ---
The patient is to tentatively discharge home today, 10/15 with [facility]. [facility] will transport the patient at approximately 1300. The family and the team were in agreeance. DMITRY presented the IM form to the patient's /DPOA-HC, Kodak via telephone. Kodak understood the form and gave SW permission to sign the form on his behalf. A copy was provided for the patient and original placed in the chart. DMITRY faxed discharge orders to [facility]. DMITRY faxed scripts to [facility]. There are no additional needs at this time.
--- NOTE | 2019-10-16 11:54 | NUR ---
Pt's arrived here around 1000. he is aware of her C-diff infection and was assisted with protective isolation requirements here. I have spoken to [facility] about how they will handle at home with good handwashing. is aware of transportation plans and is accepting. He declined a comfort quilt as they were going home and would use her own things.
--- NOTE | 2019-10-16 17:18 | NUR ---
Patient was discharged home for hospice care with Spouse. NIKA Pace removed PICC line. Patient was discharged with Mills Catherer in place. EMS transported patient home.
== END 2019-10-16 13:20 | disposition hospice, home (50) | DRG 871 ==
LOC: COL.ER 15:20 → IMCU 19:17 → MEDICAL 10-12 05:17 → ICU 10-13 08:56 → MEDICAL 10-15 16:22
PROVIDERS: Emergency Medicine; Internal Medicine; Internal Medicine Pulmonary Disease; Nurse Practitioner Family; Physician Assistant; ADMIT Hospitalist
PROC: 02HV33Z Insertion of Infusion Device into Superior Vena Cava, Percutaneous Approach (ICD-10-PCS; principal; 2019-10-13)
DX: A41.89 Other specified sepsis (principal); J96.01 Acute respiratory failure with hypoxia; R57.8 Other shock; R65.21 Severe sepsis with septic shock; E87.4 Mixed disorder of acid-base balance; E87.2 Acidosis; R18.0 Malignant ascites; K92.2 Gastrointestinal hemorrhage, unspecified; A04.72 Enterocolitis due to Clostridium difficile, not specified as recurrent; I25.10 Atherosclerotic heart disease of native coronary artery without angina pectoris; F10.10 Alcohol abuse, uncomplicated; E87.6 Hypokalemia; E83.42 Hypomagnesemia; Z66 Do not resuscitate; E11.9 Type 2 diabetes mellitus without complications; F17.210 Nicotine dependence, cigarettes, uncomplicated; Z20.828 Contact with and (suspected) exposure to other viral communicable diseases; G47.00 Insomnia, unspecified; K20.9 Esophagitis, unspecified; Z51.5 Encounter for palliative care; B37.9 Candidiasis, unspecified; Z85.07 Personal history of malignant neoplasm of pancreas
CPT/HCPCS: 99223-AI; 99233-AI; 99239; C1751; C9113; J0610; J0696; J1450; J1650; J1815; J1940; J2185; J2405; J3430; J3475; J3480; J7030; J7040; J7060; P9016; P9047; Q9967